=== PATIENT | female | born 1990 | race Caucasian/White ===

== ENCOUNTER → 2023-08-22 10:55 | Outpatient (REF) | payer OTHER, SELFPAY ==
[2023-08-22 19:57] LABS: Hepatitis B Surface Antibody Positive
[2023-08-22 20:39] LABS: Rubella Positive
[2023-08-24 10:56] LABS: Quantiferon Mitogen minus NIL 9.95 IU/mL; Quantiferon NIL 0.05 IU/mL; Quantiferon Plus TB2 minus NIL 0.01 IU/mL (<=0.34); Quantiferon TB Gold Plus Negative (Negative)
[2023-08-24 15:07] LABS: Mumps Virus IgG Negative; Varicella Zoster IgG (VZV) Positive
[2023-08-25 09:47] LABS: Rubeola (Measles) IgG Positive
== END ==
LOC: REG 10:55
PROVIDERS: ATTENDING PHYSICIAN Nurse Practitioner Family
DX: Z23 Encounter for immunization (principal)
CPT/HCPCS: 36415; 86480; 86706; 86735; 86762; 86765; 86787